=== PATIENT | female | born 1985 | race Caucasian/White ===

== ENCOUNTER 2021-01-10 14:24 | Emergency (ER) | payer OTHER ==
[2021-01-10 15:36] VITALS: BP 111/74; PULSE 80; BMI 18.6
[2021-01-10 16:44] LABS: BASO % 1.2 % (0-2.0); EOS % 1.6 % (0-4.5); HEMATOCRIT 37.9 % (32.4-45.2); HEMOGLOBIN 13.3 GM/dL (10.7-15.3); LYMPH % 17.6 % (8-40); MCH 33.4 pg (25.7-33.7); MEAN CELL VOLUME 95.5 fl (80-96); MEAN PLT VOLUME 8.2 fl (7.5-11.1); MONO % 6.5 % (3.8-10.2); NEUT % 73.1 % (42.8-82.8); PLATELET COUNT 184 10^3/uL (134-434); RBC 3.97 M/mm3 (3.60-5.2); RDW 13.1 % (11.6-15.6); WHITE BLOOD COUNT 8.6 K/mm3 (4.0-10.0)
[2021-01-10 17:00] LABS: CALCIUM 9.1 mg/dL (8.5-10.1)
[2021-01-10 17:01] LABS: BLOOD UREA NITROGEN 7.6 mg/dL (7-18)
[2021-01-10 17:04] LABS: CREATININE 0.8 mg/dL (0.55-1.3)
== END 2021-01-10 20:34 | disposition home or self-care (01) ==
LOC: JERFT 14:24
DX: S71.131A Puncture wound without foreign body, right thigh, initial encounter (principal); W26.0XXA Contact with knife, initial encounter
CPT/HCPCS: 36415; 73706-TC-RT; 80048; 84703; 85025; 99284-25; Q9967

== ENCOUNTER 2023-05-19 04:32 | Day surgery (SDC) | payer OTHER ==
[2023-05-15 12:36] VITALS: BMI 20.9
[2023-05-19] MEDS ORDERED: PROPOFOL 40 ML ONE (08:45)
[2023-05-19] MEDS ORDERED: MIDAZOLAM HCL 2 MG/2 ML SINGLE DOSE VIAL ONE (10:00)
[2023-05-19] MEDS ORDERED: FENTANYL CITRATE/PF 50 MCG/ML VIAL ONE (10:00)
[2023-05-19] MEDS ORDERED: ACETAMINOPHEN 325 MG TABLET (FP) PO PRN ×2 (11:18→11:22)
[2023-05-19] MEDS ORDERED: IBUPROFEN 400 MG TABLET (FP) PO PRN (11:18)
[2023-05-19] MEDS ORDERED: ONDANSETRON 4 MG/2 ML VIAL IVPUSH PRN (11:22)
[2023-05-19] MEDS ORDERED: oxyCODONE HCL 5 MG TABLET PO PRN (11:22)
[2023-05-19] MEDS ORDERED: LACTATED RINGERS SOLUTION 1,000 ML IV SCH (11:30)
[2023-05-19 12:38] VITALS: TEMP 97.3
[2023-05-19 13:31] VITALS: BP 121/78; PULSE 53; RESP 20
== END 2023-05-19 13:55 | disposition home or self-care (01) ==
LOC: JASU-SURG 04:32
PROVIDERS: ATTEND Specialist
PROC: 0UBC7ZX Excision of Cervix, Via Natural or Artificial Opening, Diagnostic (ICD-10-PCS; principal; 2023-05-19 09:30)
PROC: 0UPD7HZ Removal of Contraceptive Device from Uterus and Cervix, Via Natural or Artificial Opening (ICD-10-PCS; 2023-05-19 09:30)
DX: N87.1 Moderate cervical dysplasia (principal); T83.32XA Displacement of intrauterine contraceptive device, initial encounter
CPT/HCPCS: 81025; 88300-TC; 88305-TC; 88307-TC; 88341-TC; 88342-TC; 94760

== ENCOUNTER 2024-01-06 01:53 | Inpatient (IN) | payer OTHER ==
[2024-01-06 02:15] VITALS: BMI 23.7
[2024-01-06] MEDS ORDERED: IBUPROFEN 400 MG TABLET (FP) PO PRN (02:31)
[2024-01-06] MEDS ORDERED: ACETAMINOPHEN 325 MG TABLET (FP) PO PRN (02:31)
[2024-01-06] MEDS ORDERED: BISMUTH SUBSALICYLATE 524 MG/30 ML PO PRN (02:31)
[2024-01-06] MEDS ORDERED: DICYCLOMINE HCL 10 MG CAPSULE PO PRN (02:31)
[2024-01-06] MEDS ORDERED: chlordiazePOXIDE HCL 25 MG CAPSULE PO PRN (02:31)
[2024-01-06] MEDS ORDERED: POLYETHYLENE GLYCOL (HEALTHYLAX) 3350 17 GM PACKET PO PRN (02:31)
[2024-01-06] MEDS ORDERED: BENZONATATE 200 MG CAPSULE PO PRN (02:31)
[2024-01-06] MEDS ORDERED: ONDANSETRON *ODT* 4 MG TABLET SL PRN (02:31)
[2024-01-06] MEDS ORDERED: NALOXONE HCL 0.4 MG/ML VIAL IM PRN (02:31)
[2024-01-06] MEDS ORDERED: NALOXONE (NARCAN) HCL 4 MG/0.1 ML SPRAY NS PRN (02:31)
[2024-01-06] MEDS ORDERED: BENZOCAINE/MENTHOL (CHLORASEPTIC ) LOZENGE MM PRN (02:31)
[2024-01-06] MEDS ORDERED: MAGNESIUM HYDROX 2400MG/30ML ORAL SUSPENSION 30 ML CUP PO PRN (02:31)
[2024-01-06] MEDS ORDERED: guaiFENesin 600 MG TABLET.ER (FP) PO PRN (02:31)
[2024-01-06] MEDS ORDERED: LOPERAMIDE HCL 2 MG CAPSULE PO PRN (02:31)
[2024-01-06] MEDS: chlordiazePOXIDE HCL 25 MG CAPSULE PO SCH (04:17)
[2024-01-06] MEDS: hydrOXYzine PAMOATE 25 MG CAPSULE (FP) PO PRN (04:18)
[2024-01-06] MEDS: NICOTINE POLACRILEX 4 MG GUM BUC PRN (04:20)
[2024-01-06] MEDS: PRENATAL VITAMINS W/ FOLIC ACID TABLET (FP) PO SCH (09:10)
[2024-01-06] MEDS: NICOTINE 14 MG/24 HOURS TOPICAL PATCH TD SCH (09:15)
[2024-01-06 11:52] LABS: HEMATOCRIT 41.7 % (32.4-45.2); HEMOGLOBIN 14.1 GM/dL (10.7-15.3); MEAN CELL VOLUME 100.1 fl (80-96); MEAN PLT VOLUME 7.7 fl (7.5-11.1); PLATELET COUNT 200 10^3/uL (134-434); RBC 4.16 M/mm3 (3.60-5.2); RDW 14.4 % (11.6-15.6); WHITE BLOOD COUNT 4.6 K/mm3 (4.0-10.0)
[2024-01-06 12:11] LABS: POTASSIUM 3.7 mmol/L (3.5-5.1)
[2024-01-06 12:33] LABS: ALBUMIN 3.4 g/dl (3.4-5.0); BLOOD UREA NITROGEN 4.1 mg/dL (7-18); CALCIUM 8.2 mg/dL (8.5-10.1)
[2024-01-06 12:36] LABS: CREATININE 0.5 mg/dL (0.55-1.3)
[2024-01-06 12:37] LABS: BILIRUBIN,TOTAL 0.4 mg/dL (0.2-1); TOT PROT 6.4 g/dl (6.4-8.2)
[2024-01-06] MEDS: METHOCARBAMOL 500 MG TABLET PO PRN (13:04)
[2024-01-06] MEDS: IBUPROFEN 600 MG TABLET (FP) PO PRN (15:52)
[2024-01-06] MEDS: chlordiazePOXIDE HCL 10 MG CAPSULE PO ONE (16:00)
[2024-01-06] MEDS: LORazepam 2 MG TABLET PO SCH (17:01)
[2024-01-06] MEDS: MAG HYDROX/AL HYDROX/SIMETH 30 ML UNIT-DOSE CUP PO PRN (17:32)
[2024-01-06] MEDS: LORazepam 1 MG TABLET PO PRN (19:20)
[2024-01-06] MEDS: THIAMINE 100 MG TABLET PO SCH (22:14)
[2024-01-06] MEDS: MELATONIN 5 MG TABLETS PO SCH (22:14)
[2024-01-06] MEDS: levETIRAcetam 500 MG TABLET (FP) PO SCH (22:14)
[2024-01-07] MEDS ORDERED: chlordiazePOXIDE HCL 25 MG CAPSULE PO SCH (05:00)
[2024-01-08] MEDS ORDERED: chlordiazePOXIDE HCL 10 MG CAPSULE PO PRN
[2024-01-08] MEDS ORDERED: chlordiazePOXIDE HCL 10 MG CAPSULE PO SCH (05:00)
[2024-01-08] MEDS: LORazepam 1 MG TABLET PO SCH (05:38)
[2024-01-08] MEDS: levETIRAcetam 250 MG TABLET PO SCH (09:26)
[2024-01-09] MEDS ORDERED: chlordiazePOXIDE HCL 10 MG CAPSULE PO SCH (05:00)
[2024-01-09] MEDS: LORazepam 0.5 MG TABLET PO SCH (05:44)
[2024-01-09 10:20] VITALS: BP 126/94; PULSE 90; RESP 18; TEMP 97.8
[2024-01-10] MEDS ORDERED: chlordiazePOXIDE HCL 10 MG CAPSULE PO ONE (05:00)
[2024-01-10] MEDS ORDERED: LORazepam 0.5 MG TABLET PO ONE (05:00)
== END 2024-01-09 09:57 | disposition home or self-care (01) | DRG 775 ==
LOC: YASAS 01:53 → Y6N 03:21
PROVIDERS: ADMIT Allergy & Immunology; ATTEND Surgery
PROC: HZ2ZZZZ Detoxification Services for Substance Abuse Treatment (ICD-10-PCS; principal; 2024-01-06)
DX: F10.230 Alcohol dependence with withdrawal, uncomplicated (principal); F10.282 Alcohol dependence with alcohol-induced sleep disorder; F10.280 Alcohol dependence with alcohol-induced anxiety disorder; F17.210 Nicotine dependence, cigarettes, uncomplicated; F39 Unspecified mood [affective] disorder; F31.89 Other bipolar disorder; R74.01 Elevation of levels of liver transaminase levels; K21.9 Gastro-esophageal reflux disease without esophagitis; Z62.810 Personal history of physical and sexual abuse in childhood
CPT/HCPCS: 36415; 80053; 80305; 80307; 81025; 84450; 85027; 86780; 93005; 93010

== ENCOUNTER 2024-02-11 16:14 | Inpatient (IN) | payer OTHER ==
[2024-02-11 17:59] VITALS: BMI 22.6
[2024-02-11] MEDS ORDERED: chlordiazePOXIDE HCL 25 MG CAPSULE PO PRN (18:35)
[2024-02-11] MEDS ORDERED: DICYCLOMINE HCL 10 MG CAPSULE PO PRN (18:36)
[2024-02-11] MEDS ORDERED: MAGNESIUM HYDROX 2400MG/30ML ORAL SUSPENSION 30 ML CUP PO PRN (18:36)
[2024-02-11] MEDS ORDERED: IBUPROFEN 400 MG TABLET (FP) PO PRN (18:36)
[2024-02-11] MEDS ORDERED: BENZOCAINE/MENTHOL (CHLORASEPTIC ) LOZENGE MM PRN (18:36)
[2024-02-11] MEDS ORDERED: IBUPROFEN 600 MG TABLET (FP) PO PRN (18:36)
[2024-02-11] MEDS ORDERED: BISMUTH SUBSALICYLATE 524 MG/30 ML PO PRN (18:36)
[2024-02-11] MEDS ORDERED: LOPERAMIDE HCL 2 MG CAPSULE PO PRN (18:36)
[2024-02-11] MEDS ORDERED: POLYETHYLENE GLYCOL (HEALTHYLAX) 3350 17 GM PACKET PO PRN (18:36)
[2024-02-11] MEDS ORDERED: MAG HYDROX/AL HYDROX/SIMETH 30 ML UNIT-DOSE CUP PO PRN (18:36)
[2024-02-11] MEDS ORDERED: ACETAMINOPHEN 325 MG TABLET (FP) PO PRN (18:36)
[2024-02-11] MEDS ORDERED: ONDANSETRON *ODT* 4 MG TABLET SL PRN (18:36)
[2024-02-11] MEDS ORDERED: guaiFENesin 600 MG TABLET.ER (FP) PO PRN (18:36)
[2024-02-11] MEDS ORDERED: BENZONATATE 200 MG CAPSULE PO PRN (18:36)
[2024-02-11] MEDS ORDERED: METHOCARBAMOL 500 MG TABLET PO PRN (18:36)
[2024-02-11] MEDS ORDERED: chlordiazePOXIDE HCL 25 MG CAPSULE ONE (18:56)
[2024-02-11] MEDS: chlordiazePOXIDE HCL 25 MG CAPSULE PO ONE (19:04)
[2024-02-11] MEDS ORDERED: hydrOXYzine PAMOATE 25 MG CAPSULE (FP) PO ONE (19:12)
[2024-02-11] MEDS: hydrOXYzine PAMOATE 25 MG CAPSULE (FP) PO ONE (19:20)
[2024-02-11] MEDS ORDERED: LORazepam 2 MG TABLET ONE (19:21)
[2024-02-11] MEDS: LORazepam 2 MG TABLET PO ONE (19:26)
[2024-02-11] MEDS: NICOTINE POLACRILEX 2 MG GUM BUC PRN (20:36)
[2024-02-11] MEDS: THIAMINE 100 MG TABLET PO SCH (22:10)
[2024-02-11] MEDS: MELATONIN 5 MG TABLETS PO SCH (22:10)
[2024-02-11] MEDS: chlordiazePOXIDE HCL 25 MG CAPSULE PO SCH (22:12)
[2024-02-12] MEDS: PANTOPRAZOLE 40 MG TABLET PO SCH (07:50)
[2024-02-12] MEDS: PRENATAL VITAMINS W/ FOLIC ACID TABLET (FP) PO SCH (10:18)
[2024-02-12] MEDS: NALTREXONE HCL 50 MG TABLET PO SCH (13:24)
[2024-02-12] MEDS: NICOTINE POLACRILEX 2 MG LOZENGE BC PRN (17:53)
[2024-02-12] MEDS: traZODone HCL 50 MG TABLET (FP) PO SCH (22:16)
[2024-02-13] MEDS: chlordiazePOXIDE HCL 25 MG CAPSULE PO SCH (05:58)
[2024-02-13 14:31] LABS: BASO % 1.5 % (0-2.0); EOS % 7.2 % (0-4.5); HEMATOCRIT 40.1 % (32.4-45.2); HEMOGLOBIN 13.7 GM/dL (10.7-15.3); LYMPH % 33.2 % (8-40); MCH 33.5 pg (25.7-33.7); MCHC 34.1 g/dl (32.0-36.0); MEAN CELL VOLUME 98.4 fl (80-96); MEAN PLT VOLUME 9.4 fl (7.5-11.1); MONO % 5.5 % (3.8-10.2); NEUT % 52.6 % (42.8-82.8); PLATELET COUNT 108 10^3/uL (134-434); RBC 4.07 M/mm3 (3.60-5.2); RDW 12.4 % (11.6-15.6); WHITE BLOOD COUNT 4.5 K/mm3 (4.0-10.0)
[2024-02-13 14:33] LABS: POTASSIUM 3.6 mmol/L (3.5-5.1)
[2024-02-13 14:35] LABS: ALBUMIN 3.6 g/dl (3.4-5.0); BLOOD UREA NITROGEN 4.7 mg/dL (7-18); CALCIUM 8.7 mg/dL (8.5-10.1)
[2024-02-13 14:39] LABS: CREATININE 0.8 mg/dL (0.55-1.3)
[2024-02-13 14:40] LABS: BILIRUBIN,TOTAL 1.3 mg/dL (0.2-1); TOT PROT 6.2 g/dl (6.4-8.2)
[2024-02-14] MEDS ORDERED: chlordiazePOXIDE HCL 10 MG CAPSULE PO PRN
[2024-02-14] MEDS: chlordiazePOXIDE HCL 10 MG CAPSULE PO SCH (05:53)
[2024-02-15] MEDS: chlordiazePOXIDE HCL 10 MG CAPSULE PO SCH (05:26)
[2024-02-15] MEDS: P-EPHED 60MG/TRIPROLIDI 2.5MG TABLET PO PRN (05:30)
[2024-02-16] MEDS: chlordiazePOXIDE HCL 10 MG CAPSULE PO ONE (05:52)
[2024-02-16 10:23] VITALS: RESP 18
[2024-02-16 13:22] VITALS: BP 130/92; PULSE 79; TEMP 97.7
== END 2024-02-16 13:54 | disposition home or self-care (01) | DRG 775 ==
LOC: YASAS 16:14 → Y6N 19:52
PROVIDERS: ADMIT Allergy & Immunology; ATTEND Family Medicine Addiction Medicine
PROC: HZ2ZZZZ Detoxification Services for Substance Abuse Treatment (ICD-10-PCS; principal; 2024-02-11)
DX: F10.230 Alcohol dependence with withdrawal, uncomplicated (principal); F17.210 Nicotine dependence, cigarettes, uncomplicated; F31.81 Bipolar II disorder; F10.24 Alcohol dependence with alcohol-induced mood disorder; F41.9 Anxiety disorder, unspecified; K21.9 Gastro-esophageal reflux disease without esophagitis; Z86.59 Personal history of other mental and behavioral disorders
CPT/HCPCS: 36415; 80053; 80305; 80307; 81025; 85025; 86780